=== PATIENT | female | born 1985 | race African-American/Black ===

== ENCOUNTER 2019-06-18 09:21 | Emergency (ER) | payer OTHER ==
[~2019-06-18] VITALS: Ht 175.3 cm; Wt 90.9 kg
[~2019-06-18 09:21] MED LIST: NOCURR
[2019-06-18] MEDS ORDERED: SODIUM CHLORIDE 0.9% 1,000 ML IV ONE (10:45)
[2019-06-18 11:59] LABS: APPEARANCE,URINE TURBID (CLEAR); BILIRUBIN,URINE NEGATIVE (NEGATIVE); GLUCOSE, URINE (UA) NEGATIVE (NEGATIVE); KETONES,URINE TRACE mg/dL (NEGATIVE); LEUKOCYTE ESTERASE ,URINE NEGATIVE (NEGATIVE); NITRATE,URINE NEGATIVE (NEGATIVE); OCCULT BLOOD,URINE NEGATIVE (NEGATIVE); PH,URINE 5.5 (5.0-8.0); PROTEIN,URINE NEGATIVE (NEGATIVE); UROBILINOGEN,URINE 0.2 mg/dL (<=1.0)
[2019-06-18 12:02] LABS: AMORPHOUS SEDIMENT,UR Many /LPF (None Seen); BACTERIA,URINE None Seen /HPF (None Seen); RBC,URINE None Seen /HPF (0-2); WBC,URINE None Seen /HPF (0-5)
[2019-06-18 12:05] VITALS: BP 115/66
== END 2019-06-18 12:22 | disposition home or self-care (01) ==
LOC: EMS 09:26
DX: O26.891 Other specified pregnancy related conditions, first trimester (principal); R51 Headache; Z3A.01 Less than 8 weeks gestation of pregnancy
CPT/HCPCS: 81001; 81025; 99283; J7030